=== PATIENT | female | born 2000 | race Caucasian/White ===

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

== ENCOUNTER 2020-01-08 19:38 | Emergency (ER) | payer OTHER ==
[~2020-01-08] VITALS: Ht 167.6 cm; Wt 81.8 kg
[2020-01-08 19:53] VITALS: TEMP 98.2
[2020-01-08] MEDS ORDERED: FEMYNOR 28 TAB1 EACH PO (20:18)
[2020-01-08] MEDS ORDERED: TAPAZOLE5 MG PO (20:19)
[2020-01-08 21:09] VITALS: BP 128/77; PULSE 92
== END 2020-01-08 21:13 | disposition home or self-care (01) ==
LOC: COL.ER 19:38
DX: S93.402A Sprain of unspecified ligament of left ankle, initial encounter (principal); S90.02XA Contusion of left ankle, initial encounter; W10.9XXA Fall (on) (from) unspecified stairs and steps, initial encounter; X50.1XXA Overexertion from prolonged static or awkward postures, initial encounter

== ENCOUNTER 2020-11-21 21:18 | Emergency (ER) | payer OTHER ==
[~2020-11-21] VITALS: Ht 167.6 cm; Wt 84.1 kg
[~2020-11-21 21:18] MED LIST changes: +FEMYNOR 28 TAB1 EACH PO
[2020-11-21 21:42] VITALS: TEMP 97
[2020-11-21] MEDS ORDERED: CRUTCHES MC (22:51)
[2020-11-21 22:57] VITALS: BP 116/83; PULSE 96
== END 2020-11-21 23:02 | disposition home or self-care (01) ==
LOC: COL.ER 21:18
DX: S93.402A Sprain of unspecified ligament of left ankle, initial encounter (principal); W10.9XXA Fall (on) (from) unspecified stairs and steps, initial encounter